=== PATIENT | female | born 2000 | race Two or more races ===

== ENCOUNTER 2024-04-16 17:38 | Observation (INO) | payer MEDICAID ==
[~2024-04-16] VITALS: Ht 154.9 cm; Wt 54.4 kg
[2024-04-21] MEDS ORDERED: IBUP-1454 PO (16:20)
== END 2024-04-16 20:41 | disposition home or self-care (01) ==
LOC: LDRP 17:38
PROVIDERS: ADMIT Obstetrics & Gynecology; ATTEND Obstetrics & Gynecology
DX: O69.81X0 Labor and delivery complicated by cord around neck, without compression, not applicable or unspecified (principal); O47.1 False labor at or after 37 completed weeks of gestation; Z3A.40 40 weeks gestation of pregnancy
CPT/HCPCS: 59025; 76818; 81002; 94760; G0378

== ENCOUNTER 2024-04-18 12:03 | Inpatient (IN) | payer MEDICAID ==
[~2024-04-18] VITALS: Ht 154.9 cm; Wt 66.2 kg
[2024-04-18 12:49] LABS: Fern Testing Positive
[2024-04-18] MEDS ORDERED: LIDOCAINE 2%HCL (LOCAL ANESTH.) INJ 20ML MDV IJ PRN (13:00)
[2024-04-18] MEDS ORDERED: BUTORPHANOL TARTRATE 2 MG/1 ML VIAL IV PRN ×2 (13:00)
[2024-04-18 14:30] LABS: Basophils # (auto) 0 10 ^3/uL (0-0.2); Basophils % (auto) 0.3 % (0.0-2.0); Eosinophils # (auto) 0.1 10 ^3/uL (0-0.8); Eosinophils % (auto) 0.5 % (0.0-7.0); Hematocrit 34.8 % (36.0-46.0); Hemoglobin 11.9 g/dL (12.2-16.2); Lymphocytes # (auto) 1.6 10 ^3/uL (0.4-5.4); Lymphocytes % (auto) 13.8 % (10.0-50.0); Mean Corpuscular Hemoglobin 31.6 pg (28.0-32.0); Mean Corpuscular Hgb Conc. 34.2 g/dL (32.0-36.0); Mean Corpuscular Volume 92.3 fL (80.0-100.0); Monocytes # (auto) 0.9 10 ^3/uL (0-1.3); Monocytes % (auto) 7.5 % (0.0-12.0); Neutrophils # (auto) 9.1 10 ^3/uL (1.6-8.6); Neutrophils % (auto) 77.9 % (37.0-80.0); Platelet Count (auto) 209 10^3/uL (140-450); Red Blood Cells 3.77 10^6/uL (4.0-5.20); Red Cell Distribution Width 14.5 % (11.8-14.3); White Blood Cell 11.7 10^3/uL (4.4-10.8)
[2024-04-18 14:42] LABS: INR 0.94 (0.9-1.15); Partial Thromboplastin Time 28.2 SEC (24.5-34.5)
[2024-04-18 14:43] LABS: Alkaline Phosphatase 246 U/L (46-116); Anion Gap 11 (5-15); Aspartate Aminotransferase 20 U/L (13-40); BUN/Creatinine Ratio 11.5 (10.0-20.0); Blood Urea Nitrogen 6 mg/dL (9-23); Calcium 9.3 mg/dL (8.7-10.4); Carbon Dioxide 18 mmol/L (20-31); Chloride 109 mmol/L (98-107); Glucose 77 mg/dL (74-106); Potassium 3.3 mmol/L (3.5-5.1); Sodium 138 mmol/L (136-145)
[2024-04-18 14:44] LABS: Bilirubin, Total 0.5 mg/dL (0.2-1.0); Total Protein 6.3 g/dL (5.7-8.2)
[2024-04-18 15:02] LABS: Alanine Aminotransferase 14 U/L (7-40)
[2024-04-18] MEDS: ceFAZolin 2 GM/D5W50ml 50 ML IV ONE (16:42)
[2024-04-18] MEDS: POTASSIUM CHL 20 Meq TABLET PO ONE (16:42)
[2024-04-18] MEDS: LACTATED RINGER'S 1,000 ML IV SCH (17:03)
[2024-04-18] MEDS ORDERED: NALOXONE HCL 0.4 MG/ML VIAL IV ONE (18:00)
[2024-04-18] MEDS: LACTATED RINGER'S 1,000 ML IV ONE (18:00)
[2024-04-18] MEDS ORDERED: ePHEDrine SULFATE 50 MG/ML AMP IV ONE (18:00)
[2024-04-18] MEDS ORDERED: TERBUTALINE SULFATE 1 MG/ML 1ML VIAL SC PRN (20:00)
[2024-04-18] MEDS: LACT. RINGERS/OXYTOCIN 20UNITS 1,000 ML IV SCH (20:52)
[2024-04-18] MEDS: ROPIVACAINE HCL 200 ML ONE (20:53)
[2024-04-18] MEDS: fentaNYL CITRATE 100 MCG/2 ML VL IV ONE (20:54)
[2024-04-19 00:06] LABS: Amphetamine Screen, Urine Neg (NEGATIVE); Barbiturate Scree,Urine Neg (NEGATIVE); Benzodiazephine Screen, Urine Neg (NEGATIVE); Cannabinoid Screen, Urine Neg (NEGATIVE); Cocaine Screen, Urine Neg (NEGATIVE); Opiate Scree,Urine Neg (NEGATIVE); Phencyclidine Screen, Urine Neg (NEGATIVE)
[2024-04-19 00:27] LABS: Urine Bacteria FEW /hpf (None Seen); Urine Blood 2+ /uL (Negative); Urine Clarity Clear (Clear); Urine Color Colorless (Yellow); Urine Protein, UAD Negative (Negative); Urine Specific Gravity 1.003 (1.001-1.035); Urine Urobilinogen Normal (Negative); Urine WBC 4 /hpf (0 - 5); Urine pH 6.5 (5.0-9.0)
[2024-04-19] MEDS: ceFAZolin 1GM/50ML 50 ML IV SCH (00:58)
[2024-04-19] MEDS: ONDANSETRON HCL 4 MG/2 ML VIAL ONE (00:58)
[2024-04-19] MEDS: LACT. RINGERS/OXYTOCIN 20UNITS 500 ML IV ONE ×2 (01:30→01:50)
[2024-04-19] MEDS: DERMOPLAST 60ML BOTTLE TOP PRN (02:53)
[2024-04-19] MEDS: WITCH HAZEL-GLYCERIN PAD TOP PRN (02:53)
[2024-04-19] MEDS: PHISODERM TOP SOLN 240ML BTL TOP PRN (02:53)
[2024-04-19] MEDS: ONDANSETRON HCL 4 MG/2 ML VIAL IV PRN (02:54)
[2024-04-19] MEDS ORDERED: ONDANSETRON ODT 4 MG TAB PO PRN (04:45)
[2024-04-19] MEDS: ACETAMINOPHEN 325 MG TAB PO PRN (05:25)
[2024-04-19] MEDS: IBUPROFEN 800 MG TAB PO PRN (07:26)
[2024-04-19 07:30] VITALS: BP 119/76; PULSE 89; RESP 16; TEMP 99; O2SAT 96
[2024-04-19 07:56] VITALS: BP 119/76; PULSE 89; RESP 16; TEMP 99; O2SAT 96
[2024-04-19 09:08] VITALS: TEMP 98.3
[2024-04-19 10:30] VITALS: BP 119/69; PULSE 86; RESP 16; TEMP 98.3; O2SAT 98
[2024-04-19 18:30] VITALS: BP 127/76; PULSE 82; RESP 18; TEMP 97.7; O2SAT 96
[2024-04-19] MEDS: DOCUSATE SOD 100 MG CAP PO SCH (22:05)
[2024-04-19 23:00] VITALS: BP 121/89; PULSE 72; RESP 16; TEMP 98.4; O2SAT 97
[2024-04-20 03:26] VITALS: BP 120/80; PULSE 77; TEMP 98.1; O2SAT 98
[2024-04-20 06:45] VITALS: BP 112/83; PULSE 90; RESP 16; TEMP 98.1; O2SAT 96
[2024-04-20 11:30] VITALS: BP 120/87; PULSE 86; RESP 16; TEMP 98.1; O2SAT 95
[2024-04-20] MEDS ORDERED: PREN-96 PO (12:02)
[2024-04-20] MEDS ORDERED: IBUP-1455 PO (12:02)
[2024-04-20] MEDS ORDERED: DOCU-265 PO (12:02)
[2024-04-20] MEDS: DOCUSATE SOD 100 MG CAP PO ONE (12:06)
[2024-04-21 06:07] LABS: RPR Non Reactive (Non Reactive)
[2024-04-21] MEDS ORDERED: IBUP-1454 PO (16:20)
== END 2024-04-20 13:57 | disposition home or self-care (01) | DRG 560 ==
LOC: LDRP 12:03 → OBSVTOIN 12:54 → LDRP 12:59
PROVIDERS: ADMIT Obstetrics & Gynecology; ATTEND Obstetrics & Gynecology
PROC: 3E0R3BZ Introduction of Anesthetic Agent into Spinal Canal, Percutaneous Approach (ICD-10-PCS; principal; 2024-04-18)
PROC: 00HU33Z Insertion of Infusion Device into Spinal Canal, Percutaneous Approach (ICD-10-PCS; 2024-04-18)
PROC: 10E0XZZ Delivery of Products of Conception, External Approach (ICD-10-PCS; 2024-04-19)
PROC: 0W8NXZZ Division of Female Perineum, External Approach (ICD-10-PCS; 2024-04-19)
DX: O48.0 Post-term pregnancy (principal); Z37.0 Single live birth; O42.92 Full-term premature rupture of membranes, unspecified as to length of time between rupture and onset of labor; O69.81X0 Labor and delivery complicated by cord around neck, without compression, not applicable or unspecified; Z3A.40 40 weeks gestation of pregnancy
CPT/HCPCS: 36415; 59025; 59409; 62282; 80053; 80307; 81001; 81002; 84112; 85025; 85610; 85730; 86592; 86803; 86850; 86900; 86901; 94760; 96360; 96361; 96365; 96366; 96374; G0378; J2405; J2590